=== PATIENT | male | born 2000 | race Caucasian/White ===

== ENCOUNTER 2022-09-08 13:42 | Emergency (ER) | payer MEDICAID ==
[~2022-09-08] VITALS: Ht 175.3 cm; Wt 91.0 kg
[2022-09-08 14:58] LABS: BASOPHILS % 0.7 % (0.0-2.0); HEMATOCRIT. 47.4 % (42.0-52.0); HEMOGLOBIN. 16.2 g/dL (14.0-18.0); LYMPHOCYTES % 20.9 % (20.0-50.0); MEAN CORPUSCULAR HEMOGLOBIN 30.1 pg (28.0-32.0); MEAN CORPUSCULAR VOLUME 88.2 fL (80.0-94.0); MEAN PLATELET VOLUME 7.9 fl (7.4-10.4); MONOCYTES % 8.3 % (2.0-8.0); NEUTROPHILS % 69.1 % (40.0-76.0); PLATELET 422 x1000/uL (130-400); RED BLOOD CELL COUNT 5.37 mill/uL (4.7-6.1); RED CELL DISTRIBUTION WIDTH 12.9 % (11.6-14.6)
[2022-09-08 15:08] LABS: CHLORIDE 109 mEq/L (98-107)
[2022-09-08 15:13] LABS: ETHANOL BLOOD < 10 mg/dL
[2022-09-08 16:43] LABS: *AMPHETAMINES SCREEN URINE NEGATIVE (NEGATIVE); *BARBITURATES SCREEN URINE NEGATIVE (NEGATIVE); *BENZODIAZEPINES SCREEN URINE NEGATIVE (NEGATIVE); *COCAINE SCREEN URINE NEGATIVE (NEGATIVE); CANNABINOID URINE SCREEN NEGATIVE (NEGATIVE); METHADONE URINE SCREEN NEGATIVE (NEGATIVE); OPIATES URINE SCREEN NEGATIVE (NEGATIVE); PHENCYCLIDINE URINE SCREEN NEGATIVE (NEGATIVE)
[2022-09-08] MEDS: POTASSIUM CHLORIDE 20MEQ/PACKET PO NR (18:12)
[2022-09-08] MEDS: DIPHENHYDRAMINE 50MG CAPSULE PO ONE (20:38)
[2022-09-09] MEDS: FLUOXETINE HCL 20MG CAPSULE PO ONE (09:50)
[2022-09-09] MEDS: LORAZEPAM 1MG TABLET PO ONE (19:08)
[2022-09-10] MEDS: LORAZEPAM 1MG TABLET PO ONE (06:39)
[2022-09-10] MEDS: LORAZEPAM 1MG TABLET PO NR (10:37)
[2022-09-10 17:41] VITALS: BP 158/91
== END 2022-09-10 17:50 ==
LOC: ER 13:42
DX: R45.851 Suicidal ideations (principal); Z20.822 Contact with and (suspected) exposure to COVID-19
CPT/HCPCS: 36415; 80048; 80305; 80307; 80320; 80329; 85025; 87426; 99285; C9803; Q0163; G0480

== ENCOUNTER 2022-11-12 09:47 | Emergency (ER) | payer MEDICAID ==
[~2022-11-12] VITALS: Ht 167.6 cm; Wt 102.0 kg
[2022-11-12] MEDS ORDERED: LORAZEPAM 1MG TABLET PO ONE (12:45)
[2022-11-12 13:34] LABS: BASOPHILS % 0.6 % (0.0-2.0); EOSINOPHILS % 3.5 % (0.0-5.0); HEMOGLOBIN. 15.3 g/dL (14.0-18.0); LYMPHOCYTES % 18.3 % (20.0-50.0); MEAN CORPUSCULAR HEMOGLOBIN 30.1 pg (28.0-32.0); MEAN CORPUSCULAR VOLUME 88.8 fL (80.0-94.0); MEAN PLATELET VOLUME 7.6 fl (7.4-10.4); MONOCYTES % 7.8 % (2.0-8.0); NEUTROPHILS % 69.8 % (40.0-76.0); PLATELET 357 x1000/uL (130-400); RED BLOOD CELL COUNT 5.07 mill/uL (4.7-6.1); RED CELL DISTRIBUTION WIDTH 12.9 % (11.6-14.6)
[2022-11-12 13:44] LABS: CHLORIDE 108 mEq/L (98-107)
[2022-11-12 13:57] LABS: ETHANOL BLOOD < 10 mg/dL
[2022-11-12 14:38] LABS: *AMPHETAMINES SCREEN URINE NEGATIVE (NEGATIVE); *BARBITURATES SCREEN URINE NEGATIVE (NEGATIVE); *BENZODIAZEPINES SCREEN URINE NEGATIVE (NEGATIVE); *COCAINE SCREEN URINE NEGATIVE (NEGATIVE); CANNABINOID URINE SCREEN NEGATIVE (NEGATIVE); METHADONE URINE SCREEN NEGATIVE (NEGATIVE); OPIATES URINE SCREEN NEGATIVE (NEGATIVE); PHENCYCLIDINE URINE SCREEN NEGATIVE (NEGATIVE)
[2022-11-13] MEDS ORDERED: LORAZEPAM 0.5MG TABLET PO ONE (13:15)
[2022-11-13 13:46] VITALS: BP 128/69
== END 2022-11-13 17:12 | disposition home or self-care (01) ==
LOC: ER 09:47
DX: R45.851 Suicidal ideations (principal); F17.200 Nicotine dependence, unspecified, uncomplicated; Z20.822 Contact with and (suspected) exposure to COVID-19
CPT/HCPCS: 36415; 80048; 80305; 80307; 80320; 80329; 85025; 87426; 99285; C9803; G0480

== ENCOUNTER 2022-12-15 22:33 | Emergency (ER) | payer MEDICAID ==
[~2022-12-15] VITALS: Ht 172.7 cm; Wt 138.5 kg
[2022-12-16 00:29] LABS: BASOPHILS % 0.6 % (0.0-2.0); EOSINOPHILS % 3.4 % (0.0-5.0); HEMATOCRIT. 42.9 % (42.0-52.0); HEMOGLOBIN. 14.6 g/dL (14.0-18.0); LYMPHOCYTES % 20.6 % (20.0-50.0); MEAN CORPUSCULAR HEMOGLOBIN 30.6 pg (28.0-32.0); MEAN PLATELET VOLUME 7.5 fl (7.4-10.4); MONOCYTES % 7.8 % (2.0-8.0); NEUTROPHILS % 67.6 % (40.0-76.0); PLATELET 395 x1000/uL (130-400); RED BLOOD CELL COUNT 4.76 mill/uL (4.7-6.1)
[2022-12-16 00:30] LABS: *AMPHETAMINES SCREEN URINE NEGATIVE (NEGATIVE); *BARBITURATES SCREEN URINE NEGATIVE (NEGATIVE); *BENZODIAZEPINES SCREEN URINE NEGATIVE (NEGATIVE); *COCAINE SCREEN URINE NEGATIVE (NEGATIVE); CANNABINOID URINE SCREEN NEGATIVE (NEGATIVE); METHADONE URINE SCREEN NEGATIVE (NEGATIVE); OPIATES URINE SCREEN NEGATIVE (NEGATIVE); PHENCYCLIDINE URINE SCREEN NEGATIVE (NEGATIVE)
[2022-12-16 00:39] LABS: CHLORIDE 105 mEq/L (98-107)
[2022-12-16 00:47] LABS: ETHANOL BLOOD < 10 mg/dL
[2022-12-16 06:16] VITALS: BP 115/79
[2022-12-16] MEDS ORDERED: LITHIUM CARBONATE 150 MG CAPSULE PO SCH (09:15)
[2022-12-16] MEDS ORDERED: OLANZAPINE 5MG TABLET ODT PO SCH (09:15)
== END 2022-12-16 16:35 | disposition home or self-care (01) ==
LOC: ER 22:42
DX: R45.851 Suicidal ideations (principal); Z20.822 Contact with and (suspected) exposure to COVID-19
CPT/HCPCS: 36415; 80053; 80178; 80305; 80307; 80320; 80329; 85025; 87426; 99283; C9803; G0480